=== PATIENT | male | born 1975 | race Hispanic/Latino ===

== ENCOUNTER 2020-07-03 23:43 | Emergency (ER) | payer SELFPAY ==
[2020-07-04 00:23] LABS: #Basophils 0.1 thou/uL (0.0-0.2); #Eosinphils 0.1 thou/uL (0.0-0.7); #Lymphocytes 2.5 thou/uL (1.20-3.40); #Monocytes 0.4 thou/uL (0.11-0.59); #Neutrophils 4.6 thou/uL (1.40-6.50); %Basophils 1.3 % (0.0-1.0); %Eosinophils 1.7 % (0.0-10.0); %Lymphocytes 32.5 % (21.0-51.0); %Monocytes 4.9 % (0.0-10.0); %Neutrophils 59.6 % (42.0-75.0); Hemoglobin 13.6 g/dL (14.0-18.0); Mean Corpuscular HGB CONC 34.8 g/dL (32.0-36.0); Mean Corpuscular Volume 88.9 fL (78.0-98.0); Mean Platelet Volume 6.4 fL (7.4-10.4); Platelet Count 262 thou/uL (130-400); RBC Distribution Width 11.5 % (11.5-14.5); White Blood Cell (WBC) Count 7.7 thou/uL (4.8-10.8)
[2020-07-04 00:45] LABS: ALT (SGPT) 49 U/L (8-55); AST (SGOT) 70 U/L (5-34); Albumin 3.7 g/dL (3.5-5.0); Alkaline Phosphatase 125 U/L (40-110); Anion Gap 19 mmol/L (10-20); BUN (Urea Nitrogen) 14 mg/dL (8.9-20.6); Bilirubin, Total 0.5 mg/dL (0.2-1.2); Calc. Creatinine Clearance 0 mL/min (70-130); Calcium 8.9 mg/dL (7.8-10.44); Carbon Dioxide 22 mmol/L (22-29); Chloride 102 mmol/L (98-107); Globulin 3.4 g/dL (2.4-3.5); Glucose 156 mg/dL (70-105); Potassium 3.6 mmol/L (3.5-5.1); Protein, Total 7.1 g/dL (6.0-8.3); Sodium 139 mmol/L (136-145)
[2020-07-04] MEDS ORDERED: Ibuprofen 800 MG TAB ONE (01:17)
[2020-07-04 01:37] LABS: Bilirubin Negative (Negative); Blood, Urine Negative (Negative); Clarity Clear (Clear); Glucose, Urine (Dipstick) Normal (Negative); Ketone, Urine Negative (Negative); Leukocyte Negative Leu/uL (Negative); Nitrite Negative (Negative); Protein, Urine (Dipstick) Negative (Neg-Trace); Specific Gravity, Urine 1.012 (1.002-1.036); Urobilinogen Normal mg/dL (Less than 2); pH, Urine 6.5 (5.0-9.0)
[2020-07-04 01:48] LABS: Amphetamine Not Detected (NotDetected); Barbiturates Screen Not Detected (NotDetected); Benzodiazepine Screen Not Detected (NotDetected); Cocaine Metabolite Screen Not Detected (NotDetected); Medtox Control Line Valid? VALID (VALID); Medtox Reader # READER 4; Methadone Not Detected (NotDetected); Methamphetamine Not Detected (NotDetected); Opiate Screen Not Detected (NotDetected); Oxycodone Screen Not Detected (NotDetected); Phencyclidine (PCP) Not Detected (NotDetected); THC/Cannabinoid Screen Not Detected (NotDetected); Tricyclic Screen Not Detected (NotDetected)
== END 2020-07-04 02:32 | disposition home or self-care (01) ==
LOC: ERS 23:43
DX: R51.9 Headache, unspecified (principal); R42 Dizziness and giddiness; I10 Essential (primary) hypertension; F17.210 Nicotine dependence, cigarettes, uncomplicated
CPT/HCPCS: 36415; 70450; 80053; 80306; 81003; 85025; 93005

== ENCOUNTER 2021-04-20 23:19 | Emergency (ER) | payer SELFPAY ==
[2021-04-21 13:23] LABS: SARS-CoV-2 PCR by NAA Not Detected (NotDetected)
== END 2021-04-21 03:06 | disposition home or self-care (01) ==
LOC: ERS 23:19
DX: R05.9 Cough, unspecified (principal); Z20.822 Contact with and (suspected) exposure to COVID-19; I10 Essential (primary) hypertension; F17.210 Nicotine dependence, cigarettes, uncomplicated; Z79.899 Other long term (current) drug therapy
CPT/HCPCS: 71045; 87804; U0003; U0005

== ENCOUNTER 2023-06-04 03:33 | Emergency (ER) | payer BC, OTHER ==
[2023-06-04] MEDS ORDERED: Morphine 4 MG/ML VIAL ONE ×2 (05:11→07:14)
[2023-06-04 05:41] LABS: #Basophils 0.1 thou/uL (0.0-0.2); #Eosinphils 0.1 thou/uL (0.0-0.7); #Neutrophils 13.3 thou/uL (1.40-6.50); %Basophils 0.3 % (0.0-1.0); %Eosinophils 0.4 % (0.0-10.0); %Lymphocytes 10.3 % (21.0-51.0); %Monocytes 6.2 % (0.0-10.0); %Neutrophils 82.2 % (42.0-75.0); Hematocrit 44.6 % (42.0-52.0); Hemoglobin 14.5 g/dL (14.0-18.0); Mean Corpuscular HGB CONC 32.5 g/dL (32.0-36.0); Mean Corpuscular Hemoglobin 27.8 pg (27.0-31.0); Mean Corpuscular Volume 85.4 fl (78.0-98.0); Platelet Count 260 10x3/uL (130-400); RBC Distribution Width 14.2 % (11.5-14.5); Red Blood Cell (RBC) Count 5.22 mill/uL (4.70-6.10); White Blood Cell (WBC) Count 16.2 10x3/uL (4.8-10.8)
[2023-06-04 05:55] LABS: Acetaminophen Less than 10 mcg/mL (10.0-30.0); Alcohol 155.5 mg/dL (Less than 10); Salicylate Less than 8.0 mg/dL (15.0-30.0)
[2023-06-04 05:57] LABS: ALT (SGPT) 26 U/L (8-55); AST (SGOT) 29 U/L (5-34); Albumin 4.4 g/dL (3.5-5.0); Alkaline Phosphatase 125 U/L (40-110); Anion Gap 13 mmol/L (10-20); BUN (Urea Nitrogen) 18 mg/dL (8.9-20.6); Bilirubin, Total 0.3 mg/dL (0.2-1.2); Calc. Creatinine Clearance 0 mL/min (70-130); Calcium 8.9 mg/dL (7.8-10.44); Carbon Dioxide 24 mmol/L (22-29); Chloride 107 mmol/L (98-107); Estimated GFR 109; Glucose 108 mg/dL (70-105); Potassium 3.5 mmol/L (3.5-5.1); Protein, Total 7.4 g/dL (6.0-8.3); Sodium 140 mmol/L (136-145)
[2023-06-04] MEDS ORDERED: Lidocaine 1% PF 5 ML VIAL ONE (07:15)
[2023-06-04] MEDS ORDERED: Boostrix 0.5 ML (Tdap) VIAL (>/=7 yrs of age) ONE (07:15)
[2023-06-04] MEDS ORDERED: CEFAZOLIN 2 GM VIAL ONE (08:20)
[2023-06-04] MEDS ORDERED: Sodium Chloride 0.9% 100 ML ONE (08:21)
== END 2023-06-04 08:35 | disposition home or self-care (01) ==
LOC: ERS 03:33
DX: S01.81XA Laceration without foreign body of other part of head, initial encounter (principal); H61.122 Hematoma of pinna, left ear; D32.9 Benign neoplasm of meninges, unspecified; I10 Essential (primary) hypertension; F17.210 Nicotine dependence, cigarettes, uncomplicated; Z23 Encounter for immunization; Y04.2XXA Assault by strike against or bumped into by another person, initial encounter
CPT/HCPCS: 12053; 69000; 70450; 70486; 72125; 80053; 80307; 85025; 90471; 90715; 96374; 96375; 96376; J2270; J3490

== ENCOUNTER 2024-01-22 21:26 | Emergency (ER) | payer BC | END 2024-01-22 21:50 | LOC: ERS 21:26 | DX: Z02.89 Encounter for other administrative examinations (principal); T40.5X5A Adverse effect of cocaine, initial encounter; F17.210 Nicotine dependence, cigarettes, uncomplicated; I10 Essential (primary) hypertension; Y92.149 Unspecified place in prison as the place of occurrence of the external cause; Z79.899 Other long term (current) drug therapy | CPT/HCPCS: 99283 ==

== ENCOUNTER 2024-11-23 20:44 | Emergency (ER) | payer OTHER, SELFPAY ==
[2024-11-24] MEDS ORDERED: Acetaminophen 500 MG TAB ONE (00:36)
== END 2024-11-24 00:41 | disposition home or self-care (01) ==
LOC: ERS 20:44
DX: M25.571 Pain in right ankle and joints of right foot (principal); I10 Essential (primary) hypertension; Z79.899 Other long term (current) drug therapy
CPT/HCPCS: 99283

== ENCOUNTER 2025-01-25 03:09 | Emergency (ER) | payer SELFPAY ==
[2025-01-25 03:39] LABS: #Basophils 0.03 10x3/uL (0.0-0.2); #Eosinophils 0.29 10x3/uL (0.0-0.7); #Monocytes 0.61 10x3/uL (0.11-0.59); #Neutrophils 3.99 10x3/uL (1.40-6.50); %Basophils 0.4 % (0.0-1.0); %Eosinophils 4.2 % (0.0-10.0); %Lymphocytes 28.5 % (21.0-51.0); %Monocytes 8.8 % (0.0-10.0); %Neutrophils 57.5 % (42.0-75.0); Hematocrit 43.7 % (42.0-52.0); Hemoglobin 14.0 g/dL (14.0-18.0); Mean Corpuscular Hemoglobin 28.1 pg (27.0-31.0); Mean Corpuscular Volume 87.8 fL (78.0-98.0); Platelet Count 238 10x3/uL (130-400); Red Blood Cell (RBC) Count 4.98 mill/uL (4.70-6.10); White Blood Cell (WBC) Count 6.94 10x3/uL (4.8-10.8)
[2025-01-25 03:42] LABS: Bacteria/HPF None Seen HPF (None Seen); CAUTI Indications for Culture Pelvic or flank pain; Glucose, Urine (Dipstick) Normal (Negative); Leukocyte Negative Leu/uL (Negative); Protein, Urine (Dipstick) 20 mg/dL (Neg-Trace); RBC/HPF None Seen HPF (0-3); Specific Gravity, Urine 1.031 (1.002-1.036); WBC/HPF 0-3 HPF (0-3)
[2025-01-25 03:49] LABS: Urine Culture Reflex No No
[2025-01-25 03:59] LABS: ALT (SGPT) 37 U/L (Less than 45); AST (SGOT) 40 U/L (11-34); Albumin 3.7 g/dL (3.1-4.5); Alkaline Phosphatase 117 U/L (40-110); Anion Gap 16 mmol/L (10-20); BUN (Urea Nitrogen) 8 mg/dL (8.9-20.6); Bilirubin, Total 0.3 mg/dL (0.3-1.2); Calc. Creatinine Clearance 0 mL/min (70-130); Calcium 8.9 mg/dL (7.8-10.44); Carbon Dioxide 28 mmol/L (22-29); Chloride 101 mmol/L (98-107); Globulin 3.5 g/dL (2.4-3.5); Glucose 105 mg/dL (70-105); Lipase 50 U/L (8-78); Potassium 3.4 mmol/L (3.5-5.1); Sodium 142 mmol/L (136-145)
[2025-01-25] MEDS ORDERED: Ondansetron PF 4 MG/2 ML Vial ONE (04:14)
[2025-01-25] MEDS ORDERED: Ketorolac Tromethamine 30 MG (1 mL) VIAL ONE (04:14)
== END 2025-01-25 06:03 | disposition home or self-care (01) ==
LOC: ERS 03:09
DX: R10.11 Right upper quadrant pain (principal); K76.0 Fatty (change of) liver, not elsewhere classified; I10 Essential (primary) hypertension; F17.210 Nicotine dependence, cigarettes, uncomplicated
CPT/HCPCS: 76705; 80053; 81001; 83690; 84484; 85025; 93005; 96374; 96375; J1885